=== PATIENT | female | born 1980 | race African-American/Black ===

== ENCOUNTER 2021-05-02 03:20 | Emergency (ER) | payer OTHER ==
[~2021-05-02] VITALS: Ht 170.2 cm; Wt 106.8 kg
[2021-05-02 04:04] LABS: COVID AG,FIA SOURCE NASOPHARYNGEAL
[2021-05-02 05:00] VITALS: BP 117/78
== END 2021-05-02 05:06 | disposition home or self-care (01) ==
LOC: EMS 03:22
DX: J02.9 Acute pharyngitis, unspecified (principal); R05.9 Cough, unspecified; Z20.822 Contact with and (suspected) exposure to COVID-19
CPT/HCPCS: 87430; 99283